=== PATIENT | female | born 1970 | race Caucasian/White ===

== ENCOUNTER 2024-05-14 04:43 | Emergency (ER) | payer OTHER ==
[~2024-05-14] VITALS: Ht 167.6 cm; Wt 104.3 kg
[2024-05-14] MEDS ORDERED: ONDA4TAB5 PO (05:56)
[2024-05-14] MEDS ORDERED: ONDANSETRON HCL/PF 4 MG/2 ML VIAL ONE (05:56)
[2024-05-14] MEDS ORDERED: FAMOTIDINE/PF INJ 20 MG/2 ML VIAL IV ONE (05:56)
[2024-05-14] MEDS: FAMOTIDINE/PF INJ 20 MG/2 ML VIAL IV ONE (06:03)
[2024-05-14] MEDS: IV NS 0.9% 1,000 ML BAG IV ONE (06:03)
[2024-05-14] MEDS: ONDANSETRON HCL/PF 4 MG/2 ML VIAL IVP ONE (06:03)
[2024-05-14 06:04] LABS: BASOPHILS % (AUTO) 0.2 % (0.0-2.0); HEMATOCRIT 43 % (33-45); HEMOGLOBIN 14.6 g/dL (11.5-14.8); LYMPHOCYTES # (AUTO) 0.3 K/uL (0.8-4.8); MEAN CORPUSCULAR HEMOGLOBIN 30 PG (26.0-33.0); MEAN CORPUSCULAR HGB CONC 34 g/dl (31.0-36.0); MEAN CORPUSCULAR VOLUME 90 fL (82-100); MONOCYTES # (AUTO) 0.3 K/uL (0.1-1.30); MONOCYTES % (AUTO) 3.2 % (2.0-12.0); NEUTROPHILS # (AUTO) 8.2 K/uL (1.8-8.9); NEUTROPHILS % (AUTO) 93.6 % (43.0-81.0); PLATELET COUNT (AUTO) 219 K/uL (150-450); RED BLOOD CELL COUNT(AUTO) 4.84 MIL/uL (4.0-5.2); WHITE BLOOD COUNT (AUTO) 8.8 K/uL (4.3-11.0)
[2024-05-14 06:07] LABS: ADD URINE CULTURE YES; APPEARANCE,URINE CLOUDY (CLEAR); BACTERIA,URINE Few /HPF (None Seen); BILIRUBIN,URINE NEGATIVE (NEGATIVE); BLOOD, URINE TRACE-INTA Ery/uL (NEGATIVE); COLOR,URINE DARK YELLOW (YELLOW); KETONES,URINE NEGATIVE (NEGATIVE); LEUKOCYTE ESTERASE ,URINE 2+ (NEGATIVE); NITRITE, URINE NEGATIVE (NEGATIVE); PH,URINE 5.5 (5.0-8.0); PROTEIN,URINE 1+ mg/dl (NEGATIVE); SQUAMOUS EPITHELIAL CELL,UR Rare /HPF (None Seen); UGLUCOSE NEGATIVE (NEGATIVE); UROBILINOGEN,URINE 0.2 EU/dL (0.2)
[2024-05-14 06:21] LABS: ALBUMIN 3.6 g/dL (3.4-5.0); BILIRUBIN,DIRECT 0.3 mg/dL (0.0-0.2); BILIRUBIN,TOTAL 1.1 mg/dL (0.2-1.0); POTASSIUM 3.5 mmol/L (3.5-5.1); TOTAL PROTEIN, SERUM 7.6 g/dL (6.4-8.2)
[2024-05-14] MEDS ORDERED: NITR100C6 PO (06:45)
[2024-05-14 07:13] VITALS: BP 102/65; TEMP 98; O2SAT 98
== END 2024-05-14 07:14 | disposition home or self-care (01) ==
LOC: ER 04:56
DX: R11.2 Nausea with vomiting, unspecified (principal); Z87.19 Personal history of other diseases of the digestive system; Z85.820 Personal history of malignant melanoma of skin
CPT/HCPCS: 99284; 96374; 96361; 96375; 85025; 80048; 87086; 83690; 80076; 81001; 36415; J3490; J2405; J7030